=== PATIENT | male | born 1950 | race Caucasian/White ===

== ENCOUNTER → 2018-04-07 | Outpatient (CLI) | payer OTHER | LOC: RAD 10:09 | DX: M48.07 Spinal stenosis, lumbosacral region (principal); M79.662 Pain in left lower leg ==

== ENCOUNTER → 2018-04-15 | Outpatient (CLI) | payer OTHER | LOC: MRI 06:32 | DX: M47.896 Other spondylosis, lumbar region (principal); M51.27 Other intervertebral disc displacement, lumbosacral region; M48.07 Spinal stenosis, lumbosacral region; D18.09 Hemangioma of other sites; M25.78 Osteophyte, vertebrae; M79.89 Other specified soft tissue disorders ==